=== PATIENT | male | born 2000 | race Caucasian/White ===

== ENCOUNTER 2023-02-08 09:27 | Emergency (ER) | payer SELFPAY ==
[2023-02-08] MEDS ORDERED: Acetaminophen 500 MG Tab PO STA (09:58)
== END 2023-02-08 11:30 | disposition home or self-care (01) ==
LOC: MW.ED 09:27
DX: K12.0 Recurrent oral aphthae (principal); J02.0 Streptococcal pharyngitis
CPT/HCPCS: 87651; 99283; A9270